=== PATIENT | female | born 1955 | race Caucasian/White ===

== ENCOUNTER 2017-07-07 12:30 | Emergency (ER) | payer OTHER ==
[2017-07-07] MEDS ORDERED: LIDOCAINE 2% VISCOUS 15 ML UDCUP PO ONE (12:48)
[2017-07-07] MEDS ORDERED: MAG HYDROX/AL HYDROX/SIMETH 30 ML UDCUP PO ONE (12:48)
[2017-07-07] MEDS ORDERED: ONDANSETRON 4 MG/2 ML VIAL IVP ONE (12:48)
[2017-07-07] MEDS ORDERED: NS 1,000 ML IV ONE (12:48)
[2017-07-07] MEDS ORDERED: HYOSCYAMINE SULFATE 0.125 MG TAB PO ONE (12:48)
[2017-07-07 13:09] LABS: PLATELET COUNT 293 10^3/uL (150-400)
--- NOTE | 2017-07-07 13:31 | CPEKG ---
Heart Rate: 97 RR Interval: 619 P-R Interval: 136 QRSD Interval: 90 QT Interval: 360 QTC Interval: 458 P Hewett: 57 QRS Hewett: -13 T Wave Hewett: 53 EKG Severity - NORMAL ECG - EKG Impression: SINUS RHYTHM Electronically Signed By: Yasmany Hicks 09-Jul-2017 13:41:29
--- NOTE | 2017-07-07 13:38 | EDPHY ---
H & P Smoking Status: Former smoker <Vonnie Carlin - Last Filed: 07/07/17 16:40> <Liban Hardy - Last Filed: 07/07/17 17:17> Time Seen by Provider: 07/07/17 12:46 HPI/ROS: CHIEF COMPLAINT: Epigastric burning discomfort HISTORY OF PRESENT ILLNESS: This is 61-year-old female who has had 3 weeks of intermittent significant burning discomfort in her epigastrium associated with early satiety, nausea, and a bloating sensation. Pain worsen significantly this morning when the patient turned over in bed. She reports increase in the nausea and pain when she is lying on her left side or sitting upright. Vomited x2 this morning as also noted to be running a fever, patient states 100.4 at home. No diarrhea. No urinary complaints. No chest pain or shortness of breath. Pain radiates occasionally to the top of her right shoulder. REVIEW OF SYSTEMS: Aside from elements discussed in the HPI, a comprehensive 10-point review of systems was reviewed and is negative. PAST MEDICAL HISTORY: Kidney stones, ovarian cyst, history of gastritis, prior history of having a EGD with biopsy for H pylori as well as celiac disease, both were negative. SOCIAL HISTORY: Nonsmoker, rare alcohol use. VITAL SIGNS Reviewed by me. Temperature 37.5 degrees. Heart rate 101. GENERAL: Well-developed, well-nourished, slightly overweight. Reports nausea. HEENT: Atraumatic. Eyes: No icterus, no injection. Mouth: moist mucous membranes. No erythema or lesions. Neck: supple with no adenopathy. LUNGS: Clear to auscultation bilaterally, no wheezes, rhonchi or rales. CARDIAC: Regular rate and rhythm, no rubs, murmurs or gallops. ABDOMEN: Soft, mild diffuse tenderness, palpation of the abdomen increases the patient's nausea. Slightly distended. No guarding or rebound. BACK: No CVA tenderness. EXTREMITIES: No trauma. No edema. Range of motion is normal throughout. NEURO: Alert and oriented, grossly nonfocal. SKIN: Warm and dry, no rash. PSYCHIATRIC: Normal mentation, no agitation. (TesfayeVonnie Jatin) Constitutional: Initial Vital Signs Temperature (C) 37.5 C 07/07/17 12:38 Heart Rate 101 H 07/07/17 12:38 Respiratory Rate 18 07/07/17 12:38 Blood Pressure 151/100 H 07/07/17 12:38 O2 Sat (%) 92 07/07/17 12:38 O2 Delivery Mode Room Air Allergies/Adverse Reactions: naproxen sodium [From Aleve] Allergy (Severe, Verified 10/23/15 22:33) Anaphylaxis wheat [Wheat] Allergy (Severe, Verified 10/23/15 22:33) GI Penicillins Allergy (Intermediate, Verified 10/23/15 22:33) Anaphylaxis levofloxacin [From Levaquin] Allergy (Mild, Verified 10/23/15 22:33) Abdominal Pain droperidol [From Inapsine] Adverse Reaction (Severe, Verified 07/07/17 12:47) prochlorperazine edisylate [From Compazine] Adverse Reaction (Severe, Verified 07/07/17 12:48) promethazine Adverse Reaction (Severe, Verified 07/07/17 12:48) prochlorperazine maleate [From Compazine] Adverse Reaction (Intermediate, Verified 07/07/17 12:46) Home Medications: Medication Instructions Recorded [place] Thyroid 06/28/15 Hydrochlorothiazide 06/28/15 Potassium 06/28/15 Losartan Potassium [Cozaar 25 mg 10/23/15 (*)] Doxycycline Hyclate [Vibramycin 100 mg PO BID #19 cap 07/07/17 100 MG (*)] Ondansetron Odt [Zofran Odt] 4 - 8 mg PO Q4PRN PRN #4 tab 07/07/17 Pantoprazole Sodium [Protonix 40mg 40 mg PO DAILY #15 tab 07/07/17 (*)] Phytonadione 07/07/17 Medical Decision Making <Vonnie Carlin - Last Filed: 07/07/17 16:40> - Diagnostics Imaging: Discussed imaging studies w/ call person Radiologist <Liban Hardy - Last Filed: 07/07/17 17:17> - Diagnostics EKG Interpretation: 12-LEAD EKG: Please see the full report in [facility]. My interpretation: Sinus rhythm, rate of 97 (Vonnie Carlin) Imaging Results: Imaging Impressions Abdomen Ultrasound 07/07/17 13:39 Impression: 1. Steatosis of the liver which is likely mildly enlarged. 2. Normal gallbladder. 3. Poor visualization of the pancreas. Results discussed with Dr. Liban Hardy at 3:[address] 07/07/17 15:40 Impression: 1. Nephrolithiasis without obstructive uropathy. There are no imaging findings to suggest pyelonephritis. 2. See above report for additional findings. Results called and discussed with Dr. Hardy on 07/07/2017 at 16:48 ED Course/Re-evaluation: Patient had IV placed and received Zofran. GI cocktail was ordered. Patient also received morphine 4 mg. Patient underwent ultrasound of the right upper quadrant to evaluate for gallstones. This was negative. Patient's labs are largely unremarkable. She has no elevated white blood cell count, normal liver function tests, normal lipase. On re-examination the patient continues to complain of bloating and diffuse abdominal discomfort. She reports that she has had some left-sided upper abdominal discomfort while she has been here. CT scan of the abdomen pelvis was ordered. Patient does have a history of exploratory laparotomy at the age of 17. Patient's urinalysis has positive nitrates and trace leukocyte esterase. 25-50 WBC and 4 + bacteria. Patient care assumed by Dr Hardy while awaiting CT scan. (Vonnie Carlin) At [address] are back-normal with exception of nonobstructing nephrolithiasis per Dr. Bairon Ayon. The patient feels improved after her prior treatment here with a Zofran IV, Protonix GI cocktail. The On repeat exam currently-no rebound tenderness on belly exam and no significant CVA tenderness. Vitals remained stable. I suspect this patient has pyelonephritis given fever, vomiting and other symptoms. However at it seems that her upper belly pain is likely gastritis in the etiology. Dr. Mario Alberto valle prior workup has effectively ruled out cholecystitis, pancreatitis, bowel obstruction. As per conversation with Dr. Carlin, will start this patient on Protonix acid gloria, Maalox in addition if needed, bland diet. Will also treated with doxycycline for UTI. She is in this antibiotic because of the interaction with sulfa and losartan. Patient has antibiotic allergies to other typically used antibiotics. She also reveals that she had a UTI last month treated with Macrobid. Her dysuria resolved but she had persistent foul-smelling urine. Urine cultures also sent and pending. The patient will follow up with her primary care physician with plan for doxycycline, Protonix and Zofran ODT p.r.n.. She understands the need to return emergency department should she develop worsening despite the treatment plan. (Liban Hardy) - Data Points Laboratory Results: Laboratory Results 07/07/17 13:00 07/07/17 13:00 07/07/17 07/07/17 07/07/17 16:05 13:03 13:00 WBC RBC Hgb Hct MCV MCH MCHC RDW Plt Count MPV Neut % (Auto) Lymph % (Auto) [place] % (Auto) Eos % (Auto) Baso % (Auto) Nucleat RBC Rel Count Absolute Neuts (auto) Absolute Lymphs (auto) Absolute Monos (auto) Absolute Eos (auto) Absolute Basos (auto) Absolute Nucleated RBC Immature Gran % Immature Gran # Sodium 139 mEq/L mEq/L (135-145) Potassium 4.1 mEq/L mEq/L (3.5-5.2) Chloride 103 mEq/L mEq/L (97-110) Carbon Dioxide 24 mEq/l mEq/l (22-31) Anion Gap 12 mEq/L mEq/L (8-16) BUN 18 mg/dL mg/dL (7-23) Creatinine 0.7 mg/dL mg/dL (0.6-1.0) Estimated GFR > 60 Glucose 98 mg/dL mg/dL (70-100) Calcium 9.1 mg/dL mg/dL (8.5-10.4) Total Bilirubin 0.8 mg/dL mg/dL (0.1-1.4) Conjugated Bilirubin 0.4 mg/dL mg/dL (0.0-0.5) Unconjugated Bilirubin 0.4 mg/dL mg/dL (0.0-1.1) AST 22 IU/L IU/L (14-46) ALT 34 IU/L IU/L (9-52) Alkaline Phosphatase 98 IU/L IU/L (38-126) Troponin I < 0.012 ng/mL ng/mL (0.000-0.034) Total Protein 7.3 g/dL g/dL (6.3-8.2) Albumin 3.8 g/dL g/dL (3.5-5.0) Lipase 67 IU/L IU/L (23-300) Urine Color YELLOW Urine Appearance CLOUDY Urine pH 6.5 (5.0-7.5) Ur Specific [place] 1.015 (1.002-1.030) Urine Protein NEGATIVE (NEGATIVE) Urine Ketones NEGATIVE (NEGATIVE) Urine Blood NEGATIVE (NEGATIVE) Urine Nitrate POSITIVE H (NEGATIVE) Urine Bilirubin NEGATIVE (NEGATIVE) Urine Urobilinogen 0.2 EU EU (0.2-1.0) Ur Leukocyte Esterase TRACE H (NEGATIVE) Urine RBC NONE SEEN /hpf /hpf (0-3) Urine WBC 25-50 /hpf H /hpf (0-3) Ur Epithelial Cells 1+ /lpf /lpf (NONE-1+) Urine Bacteria 4+ /hpf H /hpf (NONE SEEN) Urine Mucus 1+ /lpf /lpf (NONE-1+) Urine Glucose NEGATIVE (NEGATIVE) 07/07/17 13:00 WBC 7.80 10^3/uL 10^3/uL (3.80-9.50) RBC 5.34 10^6/uL H 10^6/uL (4.18-5.33) Hgb 14.5 g/dL g/dL (12.6-16.3) Hct 43.8 % % (38.0-47.0) MCV 82.0 fL fL (81.5-99.8) MCH 27.2 pg L pg (27.9-34.1) MCHC 33.1 g/dL g/dL (32.4-36.7) RDW 14.8 % % (11.5-15.2) Plt Count 293 10^3/uL 10^3/uL (150-400) MPV 8.8 fL fL (8.7-11.7) Neut % (Auto) 85.0 % H % (39.3-74.2) Lymph % (Auto) 7.1 % L % (15.0-45.0) [place] % (Auto) 6.4 % % (4.5-13.0) Eos % (Auto) 0.4 % L % (0.6-7.6) Baso % (Auto) 0.1 % L % (0.3-1.7) Nucleat RBC Rel Count 0.0 % % (0.0-0.2) Absolute Neuts (auto) 6.63 10^3/uL H 10^3/uL (1.70-6.50) Absolute Lymphs (auto) 0.55 10^3/uL L 10^3/uL (1.00-3.00) Absolute Monos (auto) 0.50 10^3/uL 10^3/uL (0.30-0.80) Absolute Eos (auto) 0.03 10^3/uL 10^3/uL (0.03-0.40) Absolute Basos (auto) 0.01 10^3/uL L 10^3/uL (0.02-0.10) Absolute Nucleated RBC 0.00 10^3/uL 10^3/uL (0-0.01) Immature Gran % 1.0 % % (0.0-1.1) Immature Gran # 0.08 10^3/uL 10^3/uL (0.00-0.10) Sodium Potassium Chloride Carbon Dioxide Anion Gap BUN Creatinine Estimated GFR Glucose Calcium Total Bilirubin Conjugated Bilirubin Unconjugated Bilirubin AST ALT Alkaline Phosphatase Troponin I Total Protein Albumin Lipase Urine Color Urine Appearance Urine pH Ur Specific [place] Urine Protein Urine Ketones Urine Blood Urine Nitrate Urine Bilirubin Urine Urobilinogen Ur Leukocyte Esterase Urine RBC Urine WBC Ur Epithelial Cells Urine Bacteria Urine Mucus Urine Glucose Medications Given: Discontinued Medications Al Hydroxide/Mg Hydroxide (Maalox Susp) 30 ml PO ONCE ONE Stop: 07/07/17 12:49 Last Admin: 07/07/17 13:06 Dose: 30 ml Hyoscyamine Sulfate (Levsin, Hyomax-Sl) 0.25 mg PO ONCE ONE Stop: 07/07/17 12:49 Last Admin: 07/07/17 13:06 Dose: 0.25 mg Sodium Chloride (Ns) 1,000 mls @ 0 mls/hr IV EDNOW ONE; Wide Open PRN Reason: Protocol Stop: 07/07/17 12:49 Last Admin: 07/07/17 13:04 Dose: 1,000 mls Lidocaine (Lidocaine 2% Viscous) 15 ml PO ONCE ONE Stop: 07/07/17 12:49 Last Admin: 07/07/17 13:08 Dose: 15 ml Morphine Sulfate (Morphine) 4 mg IVP EDNOW ONE Stop: 07/07/17 13:41 Last Admin: 07/07/17 14:21 Dose: 4 mg Ondansetron HCl (Zofran) 4 mg IVP EDNOW ONE Stop: 07/07/17 12:49 Last Admin: 07/07/17 13:04 Dose: 4 mg Pantoprazole Sodium (Protonix) 40 mg IVP EDNOW ONE Stop: 07/07/17 15:42 Last Admin: 07/07/17 16:41 Dose: 40 mg Departure <Vonnie Carlin M - Last Filed: 07/07/17 16:40> <Liban Hardy - Last Filed: 07/07/17 17:17> - Departure Disposition: Home, Routine, Self-Care Clinical Impression: Abdominal pain Qualifiers: Abdominal location: generalized Qualified Code(s): R10.84 - Generalized abdominal pain Urinary tract infection Qualifiers: Urinary tract infection type: acute pyelonephritis Qualified Code(s): N10 - Acute pyelonephritis Vomiting Qualifiers: Vomiting type: unspecified Vomiting Intractability: non-intractable Nausea presence: with nausea Qualified Code(s): R11.2 - Nausea with vomiting, unspecified Condition: Fair Instructions: Gastritis (ED), Urinary Tract Infection in Women (ED), Acute Nausea and Vomiting (ED) Additional Instructions: Diagnoses: 1. Pyelonephritis-kidney infection 2. Vomiting 3. Gastritis Plan: [place] diet until you feel improved Protonix acid gloria Maalox in addition if needed Doxycycline antibiotic for a kidney infection. Take yogurt and/or probiotic while taking this to prevent loose stools. Zofran if needed for nausea vomiting Follow up with primary care physician for any ongoing symptoms despite treatment plan Return to emergency department for any worsening despite the treatment plan. Referrals: NONE *PRIMARY CARE P,. [Primary Care Provider] - As per Instructions REYNA JIMENEZ V [Non Staff Provider (MD)] - As per Instructions Lore Jimenez DO [Doctor of Osteopathy] - As per Instructions Prescriptions: Doxycycline Hyclate [Vibramycin 100 MG (*)] 100 mg PO BID #19 cap Ondansetron Odt [Zofran Odt] 4 - 8 mg PO Q4PRN PRN #4 tab PRN Reason: Vomiting Pantoprazole Sodium [Protonix 40mg (*)] 40 mg PO DAILY #15 tab
[2017-07-07] MEDS ORDERED: PANTOPRAZOLE SODIUM 40 MG VIAL IVP ONE (15:41)
[2017-07-07] MEDS ORDERED: IOPAMIDOL (ISOVUE-300) 100 ML BTL ONE (16:00)
[2017-07-07] MEDS ORDERED: DOXYCYCLINE HYCLATE 100 MG CAP/TAB PO ONE (16:57)
[2017-07-07 17:53] VITALS: BP 147/80
== END 2017-07-07 17:34 | disposition home or self-care (01) ==
LOC: CED 12:30
DX: N10 Acute pyelonephritis (principal); B96.20 Unspecified Escherichia coli [E. coli] as the cause of diseases classified elsewhere; E86.9 Volume depletion, unspecified; Z87.891 Personal history of nicotine dependence
CPT/HCPCS: 74177-PO; 76705-PO; 80048-PO; 80076-PO; 81003-PO; 81015-PO; 83690-PO; 84484-PO; 85025-PO; 96374; J2270; J2405; Q9967

== ENCOUNTER 2017-11-14 22:13 | Emergency (ER) | payer OTHER ==
[2017-11-14] MEDS ORDERED: diphenhydrAMINE 25 MG CAP PO ONE (22:36)
--- NOTE | 2017-11-14 22:40 | EDPHY ---
H & P Time Seen by Provider: 11/14/17 22:20 HPI/ROS: CHIEF COMPLAINT: Itching History by patient HISTORY OF PRESENT ILLNESS: 61-year-old woman with history of penicillin allergy was started on Keflex 2 days ago for urinary tract infection. Today patient returns tonight because of diffuse itching and a scratchy feeling in her throat and a red spot on her arm. She has also been having some nausea which she says she gets every time she takes antibiotics. She has been taking Zofran for this as well as probiotics. She denies any difficulty breathing. REVIEW OF SYSTEMS: As in HPI, and all other systems reviewed and are negative Smoking Status: Former smoker Physical Exam: General Appearance: Alert and no distress. Speaking full sentences, no stridor Head: normocephalic, atraumatic, no sinus tenderness Eyes: Pupils equal and round no injection. OP: mucus membranes moist, no tonsillar enlargement, no exudates, no drooling, no tongue swelling Neck: no meningismus, no cervical nodes, no submandibular nodes Respiratory: Chest is nontender, lungs are clear to auscultation. No wheezes, rales, rhonchi Cardiac: regular rate and rhythm. S1, S2, no murmurs, gallops, rubs appreciated. Gastrointestinal: Abdomen is soft and nontender, no masses, bowel sounds normal. Musculoskeletal: Neck is supple and nontender. Extremities have full range of motion and are nontender. Skin: No rashes or lesions. Constitutional: Initial Vital Signs Temperature (C) 36.6 C 11/14/17 22:23 Heart Rate 71 11/14/17 22:23 Respiratory Rate 18 11/14/17 22:23 Blood Pressure 143/80 H 11/14/17 22:23 O2 Sat (%) 93 11/14/17 22:23 O2 Delivery Mode Room Air Allergies/Adverse Reactions: naproxen sodium [From Aleve] Allergy (Severe, Verified 11/12/17 15:35) Anaphylaxis wheat [Wheat] Allergy (Severe, Verified 11/12/17 15:35) GI Penicillins Allergy (Intermediate, Verified 11/12/17 15:35) Anaphylaxis levofloxacin [From Levaquin] Allergy (Mild, Verified 11/12/17 15:35) Abdominal Pain cephalexin [From Keflex] Allergy (Verified 11/14/17 22:38) droperidol [From Inapsine] Adverse Reaction (Severe, Verified 11/12/17 15:35) prochlorperazine edisylate [From Compazine] Adverse Reaction (Severe, Verified 11/12/17 15:35) promethazine Adverse Reaction (Severe, Verified 11/12/17 15:35) prochlorperazine maleate [From Compazine] Adverse Reaction (Intermediate, Verified 11/12/17 15:35) Home Medications: Medication Instructions Recorded [place] Thyroid 06/28/15 Hydrochlorothiazide 06/28/15 Potassium 06/28/15 Losartan Potassium [Cozaar 25 mg 10/23/15 (*)] Pantoprazole Sodium [Protonix 40mg 40 mg PO DAILY #15 tab 07/07/17 (*)] Nitrofurantoin Monohyd/M-Cryst 100 mg PO BID #10 capsule 11/14/17 [Macrobid 100 mg Capsule] MDM/Departure - [facility] [place] ED Course/Re-evaluation: 61-year-old woman presents with itching and nausea after taking Keflex. Patient was given Benadryl for presumed allergic reaction. She is hemodynamically stable and there is no airway involvement or evidence of anaphylaxis. We will stop the Keflex and consider her allergic to this. I have switched her to Macrobid as on review of her chart her urine culture did grow E coli. We discussed home care including continuing Benadryl and/or switching to cetirizine. 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 She currently has no primary care physician as she has just changed insurances. - Depart Disposition: Home, Routine, Self-Care Clinical Impression: Allergic reaction caused by a drug Qualifiers: Encounter type: initial encounter Qualified Code(s): T78.40XA - Allergy, unspecified, initial encounter UTI (urinary tract infection) Qualifiers: Urinary tract infection type: site unspecified Hematuria presence: without hematuria Qualified Code(s): N39.0 - Urinary tract infection, site not specified Condition: Good Instructions: Antibiotic Medication Allergy (ED) Additional Instructions: You were seen by Dr. Shiela Choe today. You should consider yourself allergic to cephalexin (Keflex). We will switch you to Macrobid to treat urinary tract infection. Start the Macrobid tomorrow morning. For itching and other allergy symptoms, I recommend Benadryl 25-50 mg every 4-6 hours or cetirizine (Zyrtec) 10 mg once daily. You may continue Zofran as needed for nausea. I recommend continuing probiotics which she should take in between doses of antibiotics. Please follow-up with your director television news and/or urologist for your recurrent urinary tract infections. Return for any worsening or new concerns. Prescriptions: Nitrofurantoin Monohyd/M-Cryst [Macrobid 100 mg Capsule] 100 mg PO BID #10 capsule Referrals: Patient,NotPresent [Primary Care Provider] - As per Instructions
[2017-11-14 22:55] VITALS: BP 154/78
== END 2017-11-14 22:54 | disposition home or self-care (01) ==
LOC: CED 22:13
DX: T78.40XA Allergy, unspecified, initial encounter (principal); L29.8 Other pruritus; R11.0 Nausea; T36.1X5A Adverse effect of cephalosporins and other beta-lactam antibiotics, initial encounter; N39.0 Urinary tract infection, site not specified; B96.20 Unspecified Escherichia coli [E. coli] as the cause of diseases classified elsewhere

== ENCOUNTER 2018-04-07 23:47 | Observation (INO) | payer OTHER ==
--- NOTE | 2018-04-08 00:06 | EDPHY ---
H & P Smoking Status: Former smoker Time Seen by Provider: 04/08/18 00:05 HPI/ROS: CHIEF COMPLAINT: Nausea vomiting diarrhea HISTORY OF PRESENT ILLNESS: Patient is a 62-year-old female here with her with complaint of approximately 24 hr of severe watery diarrhea and nausea. She states that she has felt lightheaded and nauseous for the last 10 days since her arrival in [place]. She states she was traveling to [place] for vacation with her . She developed severe nausea wall there had no emesis. She did state that she had upset stomach and developed constipation and used to rectal suppositories stimulate bowel movement while in [place]. Additionally she notes that prior to her departure and pain a she completed her 7th course of antibiotics for chronic UTIs. She denies any current pain with urination, flank pain, hematuria. She denies any fever. She has a history of diverticulosis but never diverticulitis. She has had no recent hospitalizations. REVIEW OF SYSTEMS: Constitutional: No fever, no chills. Eyes: No discharge. ENT: No sore throat. Cardiovascular: No chest pain, no palpitations. Respiratory: No cough, no shortness of breath. Gastrointestinal: No abdominal pain, + vomiting. Genitourinary: No hematuria. Musculoskeletal: No back pain. Skin: No rashes. Neurological: No headache. (Sacha Vaughan) Physical Exam: General Appearance: Alert and oriented. Appears sick. Foul smelling. ENT: normal dentition. No tonsillar exudate or swelling. Eyes: Pupils equal and round no injection. Respiratory: Chest is nontender, lungs are clear to auscultation. Cardiac: regular rate and rhythm. No lower extremity edema Gastrointestinal: Abdomen is soft and nontender, no masses, bowel sounds normal. Musculoskeletal: Neck is supple and nontender. Extremities have full range of motion and are nontender without deformity Skin: No rashes or lesions. Neuro: Cranial nerves grossly intact. Ambulatory. (Sacha Vaughan) Constitutional: Initial Vital Signs Temperature (C) 36.7 C 04/07/18 23:56 Heart Rate 95 04/07/18 23:56 Respiratory Rate 16 04/07/18 23:56 Blood Pressure 134/85 H 04/07/18 23:56 O2 Sat (%) 95 04/07/18 23:56 O2 Delivery Mode Room Air Allergies/Adverse Reactions: droperidol [From Inapsine] Allergy (Severe, Verified 04/08/18 02:01) naproxen sodium [From Aleve] Allergy (Severe, Verified 11/12/17 15:35) Anaphylaxis prochlorperazine edisylate [From Compazine] Allergy (Severe, Verified 04/08/18 02:01) promethazine Allergy (Severe, Verified 04/08/18 02:01) wheat [Wheat] Allergy (Severe, Verified 11/12/17 15:35) GI Penicillins Allergy (Intermediate, Verified 11/12/17 15:35) Anaphylaxis prochlorperazine maleate [From Compazine] Allergy (Intermediate, Verified 02:01) levofloxacin [From Levaquin] Allergy (Mild, Verified 11/12/17 15:35) Abdominal Pain cephalexin [From Keflex] Allergy (Verified 11/14/17 22:38) Home Medications: Medication Instructions Recorded [place] Thyroid 06/28/15 Hydrochlorothiazide 06/28/15 Losartan Potassium [Cozaar 25 mg 10/23/15 (*)] Medical Decision Making ED Course/Re-evaluation: 62-year-old female here with approximately 24 hr of profuse watery diarrhea. She is incontinent of fecal matter and has a foul smell appears sick. Stool studies were ordered including stool culture, C difficile, ova and parasites. CT scan ordered to rule out diverticulitis or abscess. Patient signed out to Dr. Ellsworth at the end of my shift at 1:00 a.m.. Patient given IV fluids and Zofran for nausea and dehydration. (Sacha Vaughan) CT scan abdomen pelvis with IV contrast called by Dr. Díaz. This shows enterocolitis. No free air. Please see full dictation I did go see and evaluate the patient at 1:20 a.m. The patient is complaining of generalized weakness and not feeling well. As well as bad diarrhea. Abdominal cramping. CT scan shows enterocolitis without acute inflammation Plan for IV hydrations, mid to the hospitalist service for generalized weakness, , obtain stool study still pending. She is getting her 2nd L fluid. She would prefer to be admitted Plan for admission to the hospital. (Kyle Ellsworth) - Data Points Laboratory Results: Laboratory Results 04/08/18 00:10 04/08/18 00:10 04/08/18 04/08/18 04/08/18 01:20 00:50 00:10 WBC RBC Hgb Hct MCV MCH MCHC RDW Plt Count MPV Neut % (Auto) Lymph % (Auto) [place] % (Auto) Eos % (Auto) Baso % (Auto) Nucleat RBC Rel Count Absolute Neuts (auto) Absolute Lymphs (auto) Absolute Monos (auto) Absolute Eos (auto) Absolute Basos (auto) Absolute Nucleated RBC Immature Gran % Immature Gran # VBG Lactic Acid 1.8 mmol/L mmol/L (0.7-2.1) Sodium 140 mEq/L mEq/L (135-145) Potassium 3.9 mEq/L mEq/L (3.5-5.2) Chloride 108 mEq/L mEq/L (97-110) Carbon Dioxide 23 mEq/l mEq/l (22-31) Anion Gap 9 mEq/L mEq/L (6-14) BUN 24 mg/dL H mg/dL (7-23) Creatinine 0.7 mg/dL mg/dL (0.6-1.0) Estimated GFR > 60 Glucose 116 mg/dL H mg/dL (70-100) Calcium 8.9 mg/dL mg/dL (8.5-10.4) Total Bilirubin 0.6 mg/dL mg/dL (0.1-1.4) AST 30 IU/L IU/L (14-46) ALT 38 IU/L IU/L (9-52) Alkaline Phosphatase 101 IU/L IU/L (38-126) Total Protein 7.1 g/dL g/dL (6.3-8.2) Albumin 3.8 g/dL g/dL (3.5-5.0) Lipase 130 IU/L IU/L (23-300) Stool Concentration Pending Stool Ova & Parasites LIQUID BROWN STOOL Parasite Trichrome Pending C. difficile Tox (PCR) TNP Direct Microscop Exam TNP 04/08/18 00:10 WBC 9.70 10^3/uL H 10^3/uL (3.80-9.50) RBC 5.34 10^6/uL H 10^6/uL (4.18-5.33) Hgb 14.5 g/dL g/dL (12.6-16.3) Hct 45.4 % % (38.0-47.0) MCV 85.0 fL fL (81.5-99.8) MCH 27.2 pg L pg (27.9-34.1) MCHC 31.9 g/dL L g/dL (32.4-36.7) RDW 15.4 % H % (11.5-15.2) Plt Count 273 10^3/uL 10^3/uL (150-400) MPV 9.4 fL fL (8.7-11.7) Neut % (Auto) 85.0 % H % (39.3-74.2) Lymph % (Auto) 7.2 % L % (15.0-45.0) [place] % (Auto) 6.2 % % (4.5-13.0) Eos % (Auto) 0.4 % L % (0.6-7.6) Baso % (Auto) 0.1 % L % (0.3-1.7) Nucleat RBC Rel Count 0.0 % % (0.0-0.2) Absolute Neuts (auto) 8.24 10^3/uL H 10^3/uL (1.70-6.50) Absolute Lymphs (auto) 0.70 10^3/uL L 10^3/uL (1.00-3.00) Absolute Monos (auto) 0.60 10^3/uL 10^3/uL (0.30-0.80) Absolute Eos (auto) 0.04 10^3/uL 10^3/uL (0.03-0.40) Absolute Basos (auto) 0.01 10^3/uL L 10^3/uL (0.02-0.10) Absolute Nucleated RBC 0.00 10^3/uL 10^3/uL (0-0.01) Immature Gran % 1.1 % % (0.0-1.1) Immature Gran # 0.11 10^3/uL H 10^3/uL (0.00-0.10) VBG Lactic Acid Sodium Potassium Chloride Carbon Dioxide Anion Gap BUN Creatinine Estimated GFR Glucose Calcium Total Bilirubin AST ALT Alkaline Phosphatase Total Protein Albumin Lipase Stool Concentration Stool Ova & Parasites Parasite Trichrome C. difficile Tox (PCR) Direct Microscop Exam Medications Given: Sodium Chloride (Ns) 1,000 mls @ 100 mls/hr IV CONT NICOLAS Stop: 10/05/18 01:29 Last Admin: 04/08/18 03:00 Dose: 1,000 mls Discontinued Medications Sodium Chloride (Ns) 1,000 mls @ 0 mls/hr IV EDNOW ONE; Wide Open PRN Reason: Protocol Stop: 04/08/18 00:33 Last Admin: 04/08/18 00:51 Dose: 1,000 mls Sodium Chloride (Ns) 1,000 mls @ 0 mls/hr IV ONCE ONE PRN Reason: Wide Open Stop: 04/08/18 01:14 Last Admin: 04/08/18 01:16 Dose: 1,000 mls Ondansetron HCl (Zofran) 4 mg IVP ONCE ONE Stop: 04/08/18 00:33 Last Admin: 04/08/18 00:51 Dose: 4 mg Departure - Departure Disposition: [facility] Acute Clinical Impression: Generalized weakness Diarrhea Qualifiers: Diarrhea type: unspecified type Qualified Code(s): R19.7 - Diarrhea, unspecified Condition: Fair
[2018-04-08] MEDS ORDERED: NS 1,000 ML IV ONE ×2 (00:32→01:13)
[2018-04-08] MEDS ORDERED: ONDANSETRON 4 MG/2 ML VIAL IVP ONE (00:32)
[2018-04-08 01:14] LABS: PLATELET COUNT 273 10^3/uL (150-400)
[2018-04-08] MEDS ORDERED: ONDANSETRON DISINTEGRATING 4 MG TAB PO PRN (01:27)
[2018-04-08] MEDS ORDERED: ONDANSETRON 4 MG/2 ML VIAL IVP PRN (01:27)
[2018-04-08] MEDS ORDERED: PROMETHAZINE HCL 25 MG/ML INJ IVP PRN (01:27)
--- NOTE | 2018-04-08 01:56 | PDGENHP ---
History and Physical - Chief Complaint Vomiting, diarrhea - History of Present Illness 62 yo F w/ hx of HTN presents with nausea, vomiting, and diarrhea. The patient has recently been on a week long trip to [place]. She began to feel nauseous a few days ago and returned to the country yesterday. Today she then developed vomiting and diarrhea. She has had at least 10 diarrheal episodes, which she describes as green and non-bloody. No family members have been sick. She has been on multiple recent courses of antibiotics for recurrent urinary tracts infections. CT performed in the ED demonstrated enterocolitis. She is being admitted for rehydration and stool studies. Case discussed with ED physician Dr. Cheatham; records reviewed and summarized above. History Information - Allergies/Home Medication List Allergies/Adverse Reactions: naproxen sodium [From Aleve] Allergy (Severe, Verified 11/12/17 15:35) Anaphylaxis wheat [Wheat] Allergy (Severe, Verified 11/12/17 15:35) GI Penicillins Allergy (Intermediate, Verified 11/12/17 15:35) Anaphylaxis levofloxacin [From Levaquin] Allergy (Mild, Verified 11/12/17 15:35) Abdominal Pain cephalexin [From Keflex] Allergy (Verified 11/14/17 22:38) droperidol [From Inapsine] Adverse Reaction (Severe, Verified 11/12/17 15:35) prochlorperazine edisylate [From Compazine] Adverse Reaction (Severe, Verified 11/12/17 15:35) promethazine Adverse Reaction (Severe, Verified 11/12/17 15:35) prochlorperazine maleate [From Compazine] Adverse Reaction (Intermediate, Verified 11/12/17 15:35) Home Medications: [place] Thyroid 06/28/15 [Last Taken Unknown] Hydrochlorothiazide 06/28/15 [Last Taken Unknown] Losartan Potassium [Cozaar 25 mg (*)] 10/23/15 [Last Taken Unknown] I have personally reviewed and updated: family history, medical history - Past Medical History hypertension - Surgical History Reports: hysterectomy, thyroid surgery - Family History Additional family history: Alzheimer's. CHF. Hypertension - Social History Smoking Status: Former smoker Review of Systems Review of Systems: ROS: 10pt was reviewed & negative except for what was stated in HPI & below Physical Exam Physical Exam: Temp Pulse Resp BP Pulse Ox 36.9 C 94 18 144/81 H 93 04/08/18 01:18 04/08/18 01:18 04/08/18 01:18 04/08/18 01:18 04/08/18 01:18 Constitutional: obese, uncomfortable Eyes: PERRL, EOMI Ears, Nose, Mouth, Throat: no oral mucosal ulcers, dry mucous membranes Cardiovascular: regular rate and rhythym, no murmur, rub, or gallop Respiratory: no respiratory distress, clear to auscultation Gastrointestinal: normoactive bowel sounds, soft, non-tender abdomen, No guarding, No rebound, No distension Skin: warm, normal color Musculoskeletal: full muscle strength, no muscle tenderness Neurologic: AAOx3, CN II-XII Intact Psychiatric: interacting appropriately, not anxious Lab Data & Imaging Review 04/08/18 00:10 04/08/18 00:10 WBC 9.70 10^3/uL (3.80-9.50) H 04/08/18 00:10 RBC 5.34 10^6/uL (4.18-5.33) H 04/08/18 00:10 Hgb 14.5 g/dL (12.6-16.3) 04/08/18 00:10 Hct 45.4 % (38.0-47.0) 04/08/18 00:10 MCV 85.0 fL (81.5-99.8) 04/08/18 00:10 MCH 27.2 pg (27.9-34.1) L 04/08/18 00:10 MCHC 31.9 g/dL (32.4-36.7) L 04/08/18 00:10 RDW 15.4 % (11.5-15.2) H 04/08/18 00:10 Plt Count 273 10^3/uL (150-400) 04/08/18 00:10 MPV 9.4 fL (8.7-11.7) 04/08/18 00:10 Neut % (Auto) 85.0 % (39.3-74.2) H 04/08/18 00:10 Lymph % (Auto) 7.2 % (15.0-45.0) L 04/08/18 00:10 [place] % (Auto) 6.2 % (4.5-13.0) 04/08/18 00:10 Eos % (Auto) 0.4 % (0.6-7.6) L 04/08/18 00:10 Baso % (Auto) 0.1 % (0.3-1.7) L 04/08/18 00:10 Nucleat RBC Rel Count 0.0 % (0.0-0.2) 04/08/18 00:10 Absolute Neuts (auto) 8.24 10^3/uL (1.70-6.50) H 04/08/18 00:10 Absolute Lymphs (auto) 0.70 10^3/uL (1.00-3.00) L 04/08/18 00:10 Absolute Monos (auto) 0.60 10^3/uL (0.30-0.80) 04/08/18 00:10 Absolute Eos (auto) 0.04 10^3/uL (0.03-0.40) 04/08/18 00:10 Absolute Basos (auto) 0.01 10^3/uL (0.02-0.10) L 04/08/18 00:10 Absolute Nucleated RBC 0.00 10^3/uL (0-0.01) 04/08/18 00:10 Immature Gran % 1.1 % (0.0-1.1) 04/08/18 00:10 Immature Gran # 0.11 10^3/uL (0.00-0.10) H 04/08/18 00:10 VBG Lactic Acid 1.8 mmol/L (0.7-2.1) 04/08/18 00:50 Sodium 140 mEq/L (135-145) 04/08/18 00:10 Potassium 3.9 mEq/L (3.5-5.2) 04/08/18 00:10 Chloride 108 mEq/L (97-110) 04/08/18 00:10 Carbon Dioxide 23 mEq/l (22-31) 04/08/18 00:10 Anion Gap 9 mEq/L (6-14) 04/08/18 00:10 BUN 24 mg/dL (7-23) H 04/08/18 00:10 Creatinine 0.7 mg/dL (0.6-1.0) 04/08/18 00:10 Estimated GFR > 60 04/08/18 00:10 Glucose 116 mg/dL (70-100) H 04/08/18 00:10 Calcium 8.9 mg/dL (8.5-10.4) 04/08/18 00:10 Total Bilirubin 0.6 mg/dL (0.1-1.4) 04/08/18 00:10 AST 30 IU/L (14-46) 04/08/18 00:10 ALT 38 IU/L (9-52) 04/08/18 00:10 Alkaline Phosphatase 101 IU/L (38-126) 04/08/18 00:10 Total Protein 7.1 g/dL (6.3-8.2) 04/08/18 00:10 Albumin 3.8 g/dL (3.5-5.0) 04/08/18 00:10 Lipase 130 IU/L (23-300) 04/08/18 00:10 Imaging Review: CT A/P Prelim: Bilateral nonobstructive nephrolithiasis Stable left adrenal gland thickening (c/w CT's of 07/07/17 and 07/21/14) N/C 8 x 14 mm cyst in hepatic dome Fluid in small and large bowel with N/V/D, c/w enterocolic dysmotile process; no obstruction, diverticultitis, or free air/fluid Status post hysterectomy, rt oophorectomy (& appy, by history) Results called to Kyle Ellsworth MD at 1:07 am. MB Assessment & Plan Assessment: 62 yo F presents with nausea, vomiting, diarrhea. Plan: 1. Enterocolitis - With recent travel and antibiotics, both traveller's diarrhea and C. Diff are on the differential. She has had >10 loose, watery BM' s today. CT (personally reviewed/interpreted) demonstrates enterocolitis without complication. - Admit for observation - GI PCR ordered - mIVF, anti-emetics PRN - Clear liquids, ADAT 2. HTN - Hold home meds during acute illness, restart as indicated. 3. Stable left adrenal gland thickening - (c/w CT's of 07/07/17 and 07/21/14) - Outpatient monitoring Diet - Clears, mIVF, ADAT Code - Full Ppx - LMWH Dispo - Admit under observation status
[2018-04-08] MEDS: NS 1,000 ML IV SCH ×2 (03:00→11:49)
[2018-04-08] MEDS: ACETAMINOPHEN 325 MG TAB PO PRN ×2 (09:37→16:27)
[2018-04-08] MEDS: ENOXAPARIN 40 MG/0.4 ML SYR SC SCH (09:37)
--- NOTE | 2018-04-08 10:46 | HOSPPROG ---
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, also patient just returned from [place]) * Intractable nausea vomiting diarrhea * Acute metabolic encephalopathy based on examination findings, due to above * Dehydration * Pre renal azotemia PLANS: Continue IV hydration Antiemetics Avoid sedating medicines Promote normal sleep-wake cycle as able Diet as she is able once the nausea settles down enough to try that Reorienting measures SUBJECTIVE: Still extremely tired and weak Still having nausea but the antiemetics are being very helpful Still having significant diarrhea with incontinence OBJECTIVE Vitals reviewed: Highest temperature so far this morning 37.7, remains a bit tachycardic Exam: alert somewhat disoriented and very slow to answer questions or get words out, looks exhausted skin warm dry color ok resps not labored lungs clear BSs heart regular abd soft nondistended nontender, bowel sounds present limbs warm, no edema iv site ok Lab data: GI pathogen panel now back with norovirus present Objective: Vital Signs Temp Pulse Resp BP Pulse Ox 37.7 C 100 20 121/72 H 94 04/08/18 09:44 04/08/18 08:24 04/08/18 08:24 04/08/18 08:24 04/08/18 08:24 04/07/18 04/08/18 04/09/18 06:59 06:59 06:59 Intake Total 2330 Balance 2330 ICD10 Worksheet Patient Problems: Problems Problem Status Onset Diarrhea Acute Generalized weakness Acute
--- NOTE | 2018-04-08 11:32 | ASMTCMCOM ---
CM Note CM Note Notes: Patient admitted with intractable n/v/d; GI path panel shows norovirus. She is being treated supportively. Patient is normally independent, active, and . No discharge needs anticipated. Current CM Discharge plan: independent Date Signed: 04/08/2018 11:31 AM Electronically Signed By:Kenna Johnson RN
[2018-04-09] MEDS: ACETAMINOPHEN 325 MG TAB PO PRN (07:04)
[2018-04-09] MEDS: ENOXAPARIN 40 MG/0.4 ML SYR SC SCH (08:23)
[2018-04-09] MEDS: NS 1,000 ML IV SCH ×2 (08:24→18:23)
[2018-04-09] MEDS: THYROID 60 MG TAB PO SCH (10:44)
--- NOTE | 2018-04-09 18:31 | HOSPPROG ---
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, also patient just returned from [place]) * Intractable nausea vomiting diarrhea * Acute metabolic encephalopathy based on examination findings, due to above * Dehydration * Pre renal azotemia PLANS: Continue IV hydration Antiemetics Promote normal sleep-wake cycle as able Diet try some solid foods today ?home in 1-2 days if nausea stays down and po intake ok SUBJECTIVE: still a lot of diarrhea, > 12 stools by mid day today, no blood little pain nausea less, wants to try food OBJECTIVE Vitals reviewed: stable vitals, bps up a bit (not on usual meds) Exam: alert looks more alert and energetic today, no confusion skin warm dry color ok resps not labored lungs clear BSs heart regular abd soft nondistended nontender, bowel sounds present limbs warm, no edema iv site ok Lab data: GI pathogen panel with norovirus present Objective: Vital Signs Temp Pulse Resp BP Pulse Ox 37.1 C 72 18 156/95 H 97 04/09/18 15:51 04/09/18 15:51 04/09/18 15:51 04/09/18 15:51 04/09/18 15:51 04/08/18 04/09/18 04/10/18 06:59 06:59 06:59 Intake Total 2330 500 3489 Balance 2330 500 3489 ICD10 Worksheet Patient Problems: Problems Problem Status Onset Diarrhea Acute Generalized weakness Acute
[2018-04-10] MEDS: NS 1,000 ML IV SCH (04:47)
[2018-04-10 07:30] VITALS: BP 163/97
[2018-04-10] MEDS: ENOXAPARIN 40 MG/0.4 ML SYR SC SCH (08:01)
--- NOTE | 2018-04-10 08:39 | HOSPPROG ---
Hospitalist Progress Note Assessment/Plan: #Acute norovirus #Intractable nausea/vomiting #Mild acute metabolic encephalopathy # Objective: Vital Signs Temp Pulse Resp BP Pulse Ox 36.9 C 70 18 163/97 H 96 04/10/18 07:29 04/10/18 07:29 04/10/18 07:29 04/10/18 07:29 04/10/18 07:29 04/09/18 04/10/18 04/11/18 05:59 05:59 05:59 Intake Total 500 3989 Balance 500 3989 ICD10 Worksheet Patient Problems: Problems Problem Status Onset Diarrhea Acute Generalized weakness Acute
[2018-04-10] MEDS ORDERED: LOSARTAN POTASSIUM 50 MG TAB PO SCH (09:00)
[2018-04-10] MEDS: THYROID 60 MG TAB PO SCH (09:40)
--- NOTE | 2018-04-10 10:25 | GDS ---
DISCHARGE DIAGNOSES: 1. Acute norovirus. 2. Intractable nausea, vomiting. 3. Mild acute metabolic encephalopathy. 4. Hypertension. 5. Hepatic dome cyst HISTORY OF PRESENT ILLNESS: 62-year-old female with history of hypertension and hypothyroidism, who presents with nausea, vomiting, and diarrhea. She recently went on a week-long trip to [place]. She felt nauseous a few days ago, and when she returned to the [facility], she developed vomiting and diarrhea. She had at least 10 diarrheal episodes a day that were nonbloody. No family members have been sick. CT in the ER demonstrated enterocolitis. HOSPITAL COURSE BY PROBLEM: 1. Enterocolitis: Secondary to norovirus. C difficile was negative. She is now having more formed stools. 2. Hypertension: Resume home medications. 3. Stable left adrenal gland thickening: Continue outpatient monitoring. 4. Intractable nausea and vomiting: She is tolerating a clear diet. Will prescribe p.r.n. Zofran at home. 5. Stable left hepatic dome cyst: 8 x 14 mm cyst. Will need outpatient monitoring. 6. Acute metabolic encephalopathy: due to dehydration. Resolved. DISPOSITION: Patient stable for discharge home. Advance diet as tolerated. NEW MEDICATIONS: Zofran as needed. PHYSICAL EXAMINATION: VITAL SIGNS: Today, temperature 36.9, blood pressure 163 /97, heart rate in the 70s, respirations 18, 96% on room air. GENERAL: She is well appearing, no acute distress. HEENT: PERRLA. Moist mucous membranes. CV : Regular rate and rhythm. LUNGS: Clear. ABDOMEN: Soft, mildly distended, but no rebound or guarding. Positive bowel sounds. : No George. MUSCULOSKELETAL: Moving all 4 extremities. NEURO: 2 through 12 intact. PSYCH : Alert and oriented x3. TIME SPENT ON DISCHARGE: Greater than 30 minutes at bedside evaluating patient and counseling on diet and medications. /[id number]/MODL MTDD
== END 2018-04-10 11:40 | disposition home or self-care (01) ==
LOC: F3E 04-08 01:55
PROVIDERS: ADMIT Student in an Organized Health Care Education/Training Program; ATTEND Internal Medicine
DX: A08.11 Acute gastroenteropathy due to Norwalk agent (principal); G93.41 Metabolic encephalopathy; E86.0 Dehydration; R11.2 Nausea with vomiting, unspecified; E27.9 Disorder of adrenal gland, unspecified; R79.89 Other specified abnormal findings of blood chemistry; N28.1 Cyst of kidney, acquired; N20.0 Calculus of kidney; I10 Essential (primary) hypertension; E03.9 Hypothyroidism, unspecified; Z79.2 Long term (current) use of antibiotics; Z87.891 Personal history of nicotine dependence; Z87.440 Personal history of urinary (tract) infections; Z82.49 Family history of ischemic heart disease and other diseases of the circulatory system
CPT/HCPCS: 96374; G0378; J1650; J2405

== ENCOUNTER 2018-07-05 17:03 | Emergency (ER) | payer OTHER ==
--- NOTE | 2018-07-05 17:27 | EDPHY ---
H & P Stated Complaint: CP radiating to back for 24 hours Time Seen by Provider: 07/05/18 17:26 - Personal History Tetanus Vaccine Date: > 10 years - Medical/Surgical History Hx Asthma: Yes Hx Chronic Respiratory Disease: Yes Hx Diabetes: No Hx Cardiac Disease: Yes Hx Renal Disease: Yes Hx Cirrhosis: No Hx Alcoholism: No Hx HIV/AIDS: No Hx Splenectomy or Spleen Trauma: No Other PMH: asthmatic bronchitis, kidney stones, thyroid & parathyroid cyst removal, hyst, right ovary and fallopian removal,gastric erosion fundus, sleep apnea, hiatal hernia, HTN - Social History Smoking Status: Former smoker Constitutional: Initial Vital Signs Temperature (C) 36.7 C 07/05/18 17:15 Heart Rate 66 07/05/18 17:15 Respiratory Rate 18 07/05/18 17:15 Blood Pressure 141/71 H 07/05/18 17:15 O2 Sat (%) 96 07/05/18 17:15 O2 Delivery Mode Room Air Allergies/Adverse Reactions: droperidol [From Inapsine] Allergy (Severe, Verified 07/05/18 17:12) naproxen sodium [From Aleve] Allergy (Severe, Verified 07/05/18 17:12) Anaphylaxis prochlorperazine edisylate [From Compazine] Allergy (Severe, Verified 07/05/18 17:12) "Blacked Out" promethazine Allergy (Severe, Verified 07/05/18 17:12) "Out of it" Penicillins Allergy (Intermediate, Verified 07/05/18 17:12) Anaphylaxis prochlorperazine maleate [From Compazine] Allergy (Intermediate, Verified 17:12) levofloxacin [From Levaquin] Allergy (Mild, Verified 07/05/18 17:12) Abdominal Pain cephalexin [From Keflex] Allergy (Verified 07/05/18 17:12) Home Medications: Medication Instructions Recorded Thyroid,Pork [[place] Thyroid] 90 mg PO DAILY 04/08/18 Lisinopril 07/05/18 Medical Decision Making - Diagnostics Imaging Results: Imaging Impressions Chest X-Ray 07/05/18 17:50 Impression: No acute findings in the chest. Imaging: I viewed and interpreted images myself ED Course/Re-evaluation: CHIEF COMPLAINT: "Heart Check" HISTORY OF PRESENT ILLNESS: The patient is a 62 y/o female with a history of hypertension (on Lisinopril), hypothyroid, and gastric erosion fundus complaining of feeling more lethargic for the last 3 weeks as well as chest pain. The patient reports that at 15:00 everyday she becomes incredibly lethargic and has to take a nap. Every night she then wakes up at 03:00 with anxiety and a racing mind, which is also abnormal. She has also felt more lethargic while exercising and is unable to recover easily. During these episodes she has not chest pain or heart palpitations. Due to these symptoms she thought she had low thyroid symptoms so she ordered labs even though she had a normal TSH 1 month ago. These lab results are still pending. She denies changing her thyroid medication dose. Yesterday she had a "huge shift and a thunk in her chest everything changed and started to spread out and it felt like my body suddenly infused a huge amount of adrenaline". She then developed brief chest pain which radiated back into her shoulder blades. She also developed "cold tingles" in her hands. Today she still had chest pain and tightness, so she decided to present to an urgent care. The patient was then advised to present to the emergency department. No fever, headache, body aches, lightheadedness, heart palpitations, shortness of breath, cough, abdominal pain, urinary or bowel complaints, numbness, paresthesias. REVIEW OF SYSTEMS: A comprehensive 10 system review of systems is otherwise negative aside from elements mentioned in the history of present illness and medical decision making. PHYSICAL EXAM: HR, BP, O2 Sat, RR. Temp noted General Appearance: Alert, well hydrated, appropriate, and non-toxic appearing. Head: Atraumatic without scalp tenderness or obvious injury Eyes: Pupils equal, round, reactive to light and accommodation, EOMI, no trauma , no injection. Ears: Clear bilaterally, no perforation, normal landmarks Nose: Atraumatic, no rhinorrhea, clear. Throat: There is no erythema or exudates, no lesions, normal tonsils, mucus membranes moist. Neck: Supple, 2+ carotid upstroke, nontender, no lymphadenopathy. Respiratory: No retractions, no distress, no wheezes, and no accessory muscle use. Lungs are clear to auscultation bilaterally. Cardiovascular: Regular rate and rhythm, no murmurs, rubs, or gallops. Bilateral carotid, radial, dorsalis pedis, and posterior tibial pulses intact. Good capillary refill all extremities. Gastrointestinal: Abdomen is soft, nontender, non-distended, no masses, no rebound, no guarding, no peritoneal signs. Musculoskeletal: Normal active ROM of all extremities, atraumatic. Neurological: Alert, appropriate, and interactive. The patient has normal DTRs and non-focal cranial nerves, motor, sensory, and cerebellar exam. Skin: No rashes, good turgor, no nodules on palpation. Past medical history: Asthmatic bronchitis, kidney stones, gastric erosion fundus, sleep apnea, hiatal hernia, hypertension (changed from Losartan to Lisinopril) Past surgical history: Thyroid & parathyroid cyst removal, hysterectomy, Family history: Mother had hypertension, hypercholesteremia, and heart valve replacement (77 y/o). Father of heart attack. Social history: at bedside, employed, lives in [place] DIAGNOSTICS/PROCEDURES/CRITICAL CARE TIME: EKG: The 12 lead EKG was interpreted by myself as sinus rhythm with a rate of 63. See hard copy and/or "tracemaster" electronic copy for interpretation. Chest x-ray: No acute findings. DIFFERENTIAL DIAGNOSIS: The differential diagnosis for the patient's chest pain included but was not limited to endocrine disorder, myocardial ischemia, pulmonary embolus, chest wall pain, pleural inflammation, and pulmonary infectious causes. MEDICAL DECISION MAKING: The patient is a 62 y/o female with a history of hypertension (on Lisinopril), hypothyroid, and gastric erosion fundus complaining of feeling more lethargic for the last 3 weeks as well as chest pain. The patient reports that at 15:00 everyday she becomes incredibly lethargic and has to take a nap. Every night she then wakes up at 03:00 with anxiety and a racing mind, which is also abnormal. Yesterday she had a "huge shift and a thunk in her chest everything changed and started to spread out and it felt like my body suddenly infused a huge amount of adrenaline". She then developed brief chest pain which radiated back into her shoulder blades. She did receive 324mg PO Aspirin at an urgent care today. Patient has a normal physical exam. Labs, chest x-ray and EKG ordered. 1729: I reviewed patient's EKG as sinus rhythm with a rate of 63. 1900: Patient's labs, chest x-ray, and EKG are unremarkable. She has a negative troponin. Patient is safe to be discharged home with plan for cardiology follow up. 1902: Reassessed patient and discussed diagnostic findings. I have discussed plan for follow up with a produce wrapper and an candy polisher, which she is comfortable with. Return precautions provided. - Data Points Laboratory Results: Laboratory Results 07/05/18 18:00 07/05/18 18:00 07/05/18 07/05/18 07/05/18 18:01 18:00 18:00 WBC RBC Hgb Hct MCV MCH MCHC RDW Plt Count MPV Neut % (Auto) Lymph % (Auto) [place] % (Auto) Eos % (Auto) Baso % (Auto) Nucleat RBC Rel Count Absolute Neuts (auto) Absolute Lymphs (auto) Absolute Monos (auto) Absolute Eos (auto) Absolute Basos (auto) Absolute Nucleated RBC Immature Gran % Immature Gran # D-Dimer 0.33 ug/mLFEU ug/mLFEU (0.00-0.50) Sodium 136 mEq/L mEq/L (135-145) Potassium 3.9 mEq/L mEq/L (3.5-5.2) Chloride 102 mEq/L mEq/L (97-110) Carbon Dioxide 25 mEq/l mEq/l (22-31) Anion Gap 9 mEq/L mEq/L (6-14) BUN 25 mg/dL H mg/dL (7-23) Creatinine 0.8 mg/dL mg/dL (0.6-1.0) Estimated GFR > 60 Glucose 96 mg/dL mg/dL (70-100) Calcium 9.4 mg/dL mg/dL (8.5-10.4) POC Troponin I 0.00 ng/mL ng/mL (0.00-0.08) NT-Pro-B Natriuret Pep 22 pg/mL pg/mL (0-125) 07/05/18 18:00 WBC 6.67 10^3/uL 10^3/uL (3.80-9.50) RBC 5.06 10^6/uL 10^6/uL (4.18-5.33) Hgb 13.9 g/dL g/dL (12.6-16.3) Hct 43.4 % % (38.0-47.0) MCV 85.8 fL fL (81.5-99.8) MCH 27.5 pg L pg (27.9-34.1) MCHC 32.0 g/dL L g/dL (32.4-36.7) RDW 14.8 % % (11.5-15.2) Plt Count 273 10^3/uL 10^3/uL (150-400) MPV 9.0 fL fL (8.7-11.7) Neut % (Auto) 60.4 % % (39.3-74.2) Lymph % (Auto) 24.6 % % (15.0-45.0) [place] % (Auto) 12.9 % % (4.5-13.0) Eos % (Auto) 1.3 % % (0.6-7.6) Baso % (Auto) 0.4 % % (0.3-1.7) Nucleat RBC Rel Count 0.0 % % (0.0-0.2) Absolute Neuts (auto) 4.02 10^3/uL 10^3/uL (1.70-6.50) Absolute Lymphs (auto) 1.64 10^3/uL 10^3/uL (1.00-3.00) Absolute Monos (auto) 0.86 10^3/uL H 10^3/uL (0.30-0.80) Absolute Eos (auto) 0.09 10^3/uL 10^3/uL (0.03-0.40) Absolute Basos (auto) 0.03 10^3/uL 10^3/uL (0.02-0.10) Absolute Nucleated RBC 0.00 10^3/uL 10^3/uL (0-0.01) Immature Gran % 0.4 % % (0.0-1.1) Immature Gran # 0.03 10^3/uL 10^3/uL (0.00-0.10) D-Dimer Sodium Potassium Chloride Carbon Dioxide Anion Gap BUN Creatinine Estimated GFR Glucose Calcium POC Troponin I NT-Pro-B Natriuret Pep Medications Given: Discontinued Medications Aspirin (Aspirin) 324 mg PO EDNOW ONE Stop: 07/05/18 17:51 Last Admin: 07/05/18 17:54 Dose: Not Given Point of Care Test Results: Chemistry 07/05/18 18:01 POC Troponin I 0.00 ng/mL ng/mL (0.00-0.08) Departure - Departure Disposition: Home, Routine, Self-Care Clinical Impression: Chest pain Qualifiers: Chest pain type: other chest pain Qualified Code(s): R07.89 - Other chest pain Fatigue Qualifiers: Fatigue type: unspecified Qualified Code(s): R53.83 - Other fatigue Condition: Good Instructions: Chest Pain (ED), Fatigue (ED) Additional Instructions: 1. Follow-up with your primary doctor within 72 hours. 2. Return to the Emergency Department for fever, chest pain, shortness of breath , increasing pain or other worsening of condition. 3. Follow up with a produce wrapper for further testing, as soon as possible, within one week. 4. As we discussed, it is impossible to fully rule out heart disease as the cause of your chest pain in the emergency department. We would be happy to reevaluate you and observe you in the hospital at any time. 5. Follow up with an candy polisher. Referrals: Nico Thompson MD [Medical Doctor] - As per Instructions Megan Rich [place] [place] - As per Instructions Report Scribed for: Phoenix David Report Scribed by: Nika Rodriguez Date of Report: 07/05/18 Time of Report: 17:48
[2018-07-05] MEDS ORDERED: ASPIRIN 81 MG CHEWABLE TAB PO ONE (17:50)
[2018-07-05 18:11] LABS: PLATELET COUNT 273 10^3/uL (150-400)
[2018-07-05 19:11] VITALS: BP 118/73
--- NOTE | 2018-07-05 22:27 | CPEKG ---
Test Reason : OPEN Blood Pressure : / mmHG Vent. Rate : 063 BPM Atrial Rate : 061 BPM P-R Int : 130 ms QRS Dur : 099 ms QT Int : 406 ms P-R-T Axes : 079 -05 059 degrees QTc Int : 416 ms Sinus rhythm Confirmed by Phoenix David ([id number]) on 07/05/2018 10:27:41 PM Referred By: Phoenix David Confirmed By:Phoenix David
== END 2018-07-05 19:17 | disposition home or self-care (01) ==
DX: R07.89 Other chest pain (principal); R53.83 Other fatigue; I10 Essential (primary) hypertension
CPT/HCPCS: 84484-ER

== ENCOUNTER → 2018-07-25 | Outpatient (CLI) | payer OTHER | LOC: EMCIMAGING 13:27 | PROVIDERS: ATTEND Internal Medicine | DX: R06.02 Shortness of breath (principal) | CPT/HCPCS: 71250-PN ==

== ENCOUNTER 2018-07-29 21:49 | Emergency (ER) | payer OTHER ==
--- NOTE | 2018-07-29 23:37 | EDPHY ---
H & P Stated Complaint: abd distention today, fatigue, RUDOLPH Time Seen by Provider: 07/29/18 22:44 HPI/ROS: Chief Complaint: Fatigue HPI: 62-year-old woman who has a history of hypothyroidism, has been having increasing fatigue over the last urine half. Fatigue symptoms have been worse for the last 2 days. She has also been having difficulty sleeping. Patient states that she has been sleeping a lot lately but when she falls asleep she wakes up gasping in feels like she is not acting oxygen. She did have a CT scan of the chest done last week which shows some granulomatous disease. She has referral to weight trainer. He has recently seen by Ear Nose and Throat doctor in started on Decadron. She took the Decadron up until 3 days ago. She states that while taking the Dacron she was up at night could not get any sleep. Does have a history of some sleep apnea is had sleep studies done. She is also scheduled to see a specialist high school band teacher about her thyroid but states that her last thyroid test were normal. No fevers or chills. No cough. No nausea or vomiting. No bleeding. No dark black tarry stools. She is also complaining of some abdominal bloating for the last few days. ROS: 10 systems were reviewed and were negative except those elements noted in the HPI. PMH: Fatigue Social History: No smoking, no alcohol, no recreational drug use Family History: non-contributory Physical Exam: Gen: Awake, Alert, No Distress HEENT: Nose: no rhinorrhea Eyes: PERRLA, EOMI Mouth: Moist mucosa Neck: Supple, no JVD Chest: nontender, lungs clear to auscultation Heart: S1, S2 normal, no murmur Abd: Soft, non-tender, no guarding Back: no CVA tenderness, no midline tenderness Ext: no edema, non-tender Skin: no rash Neuro: CN II-XII intact, Sensation grossly intact, Strength 5/5 in bilateral upper and lower extremities - Personal History Current Tetanus/Diphtheria Vaccine: No Tetanus Vaccine Date: > 10 years - Medical/Surgical History Hx Asthma: Yes Hx Chronic Respiratory Disease: Yes Hx Diabetes: No Hx Cardiac Disease: Yes Hx Renal Disease: Yes Hx Cirrhosis: No Hx Alcoholism: No Hx HIV/AIDS: No Hx Splenectomy or Spleen Trauma: No Other PMH: asthmatic bronchitis, kidney stones, thyroid & parathyroid cyst removal, hyst, right ovary and fallopian removal,gastric erosion fundus, sleep apnea, hiatal hernia, HTN - Social History Smoking Status: Former smoker Constitutional: Initial Vital Signs Temperature (C) 36.6 C 07/29/18 21:51 Heart Rate 75 07/29/18 21:51 Respiratory Rate 18 07/29/18 21:51 Blood Pressure 159/88 H 07/29/18 21:51 O2 Sat (%) 94 07/29/18 21:51 O2 Delivery Mode Room Air Allergies/Adverse Reactions: droperidol [From Inapsine] Allergy (Severe, Verified 07/05/18 17:12) naproxen sodium [From Aleve] Allergy (Severe, Verified 07/05/18 17:12) Anaphylaxis prochlorperazine edisylate [From Compazine] Allergy (Severe, Verified 07/05/18 17:12) "Blacked Out" promethazine Allergy (Severe, Verified 07/05/18 17:12) "Out of it" Penicillins Allergy (Intermediate, Verified 07/05/18 17:12) Anaphylaxis prochlorperazine maleate [From Compazine] Allergy (Intermediate, Verified 17:12) levofloxacin [From Levaquin] Allergy (Mild, Verified 07/05/18 17:12) Abdominal Pain cephalexin [From Keflex] Allergy (Verified 07/05/18 17:12) dexamethasone Allergy (Verified 07/29/18 21:55) Home Medications: Medication Instructions Recorded Thyroid,Pork [[place] Thyroid] 90 mg PO DAILY 04/08/18 Lisinopril 07/05/18 Medical Decision Making ED Course/Re-evaluation: Patient presenting with fatigue worse for the last few days. He did just finish a course of oral Decadron. She was quite activated by this while taking it not think that she is now experiencing fatigue secondary to the steroid affect. She had a CT scan last week which shows some granulomatous disease but was otherwise unremarkable. Recent thyroid studies have been normal. I have reviewed her recent laboratory evaluations and those are all pretty unremarkable. Patient has been reassured. She has been awake alert and appropriate during my conversations. Plan will be for discharge with follow-up with primary care physician, return for any concerns. There is no evidence of acute emergent medical process at this time. Departure - Departure Disposition: Home, Routine, Self-Care Clinical Impression: Fatigue Condition: Good Instructions: Fatigue (ED) Additional Instructions: Follow up with primary care physician in 2-3 days for further evaluation. Referrals: Robin Navarro MD [Primary Care Provider] - As per Instructions
[2018-07-29 23:47] VITALS: BP 170/99
== END 2018-07-29 23:47 | disposition home or self-care (01) ==
DX: R53.83 Other fatigue (principal); I10 Essential (primary) hypertension; G47.30 Sleep apnea, unspecified